=== PATIENT | female | born 1975 | race Caucasian/White ===

== ENCOUNTER 2018-09-20 07:23 | Day surgery (SDC) | payer OTHER ==
[2018-09-20] MEDS ORDERED: LIDOCAINE 1% 2 ML INJ ID PRN (07:45)
[2018-09-20] MEDS ORDERED: LR 1,000 ML IV ONE (07:45)
[2018-09-20] MEDS ORDERED: IOPAMIDOL (ISOVUE-M 300) 15 ML VIAL ONE (07:59)
[2018-09-20] MEDS ORDERED: LIDOCAINE 2% JELLY 20 ML (UROJECT) ONE ×2 (07:59→10:57)
[2018-09-20] MEDS ORDERED: OPIUM/BELLADONNA ALKALO SUPP PR ONE (07:59)
[2018-09-20] MEDS ORDERED: levOFLOXACIN 500 MG/DEXTROSE 100 ML IV ONE (08:03)
[2018-09-20] MEDS ORDERED: MIDAZOLAM 2 MG/2 ML VIAL IVP ONE (08:40)
--- NOTE | 2018-09-20 08:40 | PDANEPAE ---
ANE Past Medical History - Cardiovascular History Hx Hypertension: No Hx Arrhythmias: No Hx Chest Pain: No Hx Coronary Artery / Peripheral Vascular Disease: No Hx CHF / Valvular Disease: No Hx Palpitations: No - Pulmonary History Hx COPD: No Hx Asthma/Reactive Airway Disease: No Hx Recent Upper Respiratory Infection: No Hx Oxygen in Use at Home: No Hx Sleep Apnea: No Sleep Apnea Screening Result - Last Documented: Negative - Neurologic History Hx Cerebrovascular Accident: No Hx Seizures: Yes Hx Dementia: No Neurologic History Comment: CHILDHOOD SEIZURES W/FEVER - Endocrine History Hx Diabetes: No Hypothyroid: No Hyperthyroid: No Obesity: no - Renal History Hx Renal Disorders: Yes Renal History Comment: URETERAL OBSTRUCTION -W/RECENT KIDNEY INFECTION. 08/2018 - Liver History Hx Hepatic Disorders: Yes Hepatic History Comment: CHOLECYSTECTOMY - Neurological & Psychiatric Hx Hx Neurological and Psychiatric Disorders: No - Cancer History Hx Cancer: No - Congenital Disorder History Hx Congenital Disorders: No - GI History Hx Gastrointestinal Disorders: No - Other Health History Other Health History: NEG - Chronic Pain History Chronic Pain: Yes (KIDNEY PAIN) - Surgical History Prior Surgeries: ANKLE SURGERY. TUBAL LIGATION. TENDON REPAIR ANKLE. CHOLECYSTECTOMY. URETEROSCOPY W/STENT. ABDOMINOPLASTY ANE Review of Systems Review of Systems: - Exercise capacity METS (RN): 5 METS ANE Patient History - Allergies Allergies/Adverse Reactions: melatonin Allergy (Verified 09/19/18 17:17) FACE & THROAT SWELLING, REDNESS, DIFFICULTY BREATHING - Home Medications Home Medications: NK [No Known Home Meds] 09/19/18 [Last Taken Unknown] - NPO status NPO Since - Liquids (Date): 09/20/18 NPO Since - Liquids (Time): 00:00 NPO Since - Solids (Date): 09/19/18 NPO Since - Solids (Time): 23:00 - Smoking Hx Smoking Status: Never smoked ANE Labs/Vital Signs - Vital Signs Blood Pressure: 108/65 Heart Rate: 81 Respiratory Rate: 20 O2 Sat (%): 95 Height: 172.72 cm Weight: 83.915 kg ANE Physical Exam - Airway Neck exam: FROM Mallampati Score: Class 1 Mouth exam: normal dental/mouth exam - Pulmonary Pulmonary: no respiratory distress - Cardiovascular Cardiovascular: regular rate and rhythym - ASA Status ASA Status: II
[2018-09-20] MEDS ORDERED: fentaNYL 250 MCG/5 ML INJ ONE (08:53)
[2018-09-20] MEDS ORDERED: DEXAMETHASONE 4 MG/ML VIAL ONE (08:53)
[2018-09-20] MEDS ORDERED: LIDOCAINE 2% 2 ML INJ ONE (08:53)
[2018-09-20] MEDS ORDERED: PROPOFOL 200 MG/20 ML VIAL ONE ×3 (08:53→09:28)
[2018-09-20] MEDS ORDERED: ONDANSETRON 4 MG/2 ML VIAL ONE (08:53)
--- NOTE | 2018-09-20 08:55 | PDHPUP ---
History & Physical Update H&P update statement: This history and physical update is based on an assessment of the patient which was completed after admission or registration (within 24 hours), but prior to the surgery/procedure. H&P update: H&P reviewed & patient examined, no change in patient's condition since H&P completed
[2018-09-20] MEDS ORDERED: PHENYLEPHRINE HCL 100 MCG/ML SYR ONE (10:08)
[2018-09-20] MEDS ORDERED: ePHEDrine SULFATE 25 MG/5 ML SYR ONE (10:08)
[2018-09-20] MEDS ORDERED: KETOROLAC 30 MG/1 ML SDV ONE (10:08)
[2018-09-20] MEDS ORDERED: fentaNYL 100 MCG/2 ML INJ IVP PRN (10:17)
[2018-09-20] MEDS ORDERED: NALOXONE HCL 0.4 MG/ML INJ IVP PRN (10:17)
[2018-09-20] MEDS ORDERED: ONDANSETRON 4 MG/2 ML VIAL IVP PRN (10:17)
--- NOTE | 2018-09-20 10:17 | POSTANESTH ---
Post Anesthetic Evaluation Cardiovascular Status: Normal, Stable Respiratory Status: Normal, Stable Level of Consciousness/Mental Status: Mildly Sleepy, Arousable Pain Control: Adequate, Prn Tx Ordered Nausea/Vomiting Control: Adequate, Prn Tx Ordered Complications Possibly Related to Anesthesia: None Noted
--- NOTE | 2018-09-20 10:28 | POSTOPPROG ---
Post Op Note Date of Operation: 09/20/18 Surgeon: Sarah Sheets Anesthesiologist: Sindi Anesthesia: GET(General Endotracheal) Pre-op Diagnosis: right ureterocele, right hydronephrosis Post-op Diagnosis: same Indication: right ureterocele, right hydronephrosis Procedure: cystoscopy, right transurethral incision of ureterocele, stent Findings: right thick walled ureterocele Inf/Abcess present in the surg proc area at time of surgery?: No Depth: Organ Space Complications: None, patient tolerated well.
[2018-09-20 12:34] VITALS: BP 119/70
--- NOTE | 2018-09-20 13:12 | GOP ---
DATE OF OPERATION: 09/20/2018 SURGEON: Sarah Sehets MD ANESTHESIA: General. ANESTHESIOLOGIST: Ronaldo Delong MD PREOPERATIVE DIAGNOSIS: Right ureterocele, right hydronephrosis, history of urinary tract infection. POSTOPERATIVE DIAGNOSIS: Right ureterocele, right hydronephrosis, history of urinary tract infection. PROCEDURE PERFORMED: Cystoscopy and right transurethral incision of ureterocele and stent placement. FINDINGS: Thick walled ureterocele and a well-placed stent at the end of the procedure. SPECIMENS: None. INDICATIONS: Right obstructing ureterocele. DESCRIPTION OF PROCEDURE: The patient was taken back to the cystoscopy suite, placed on the cystoscopy table in supine position. General anesthesia induced without complication. Time-out performed and core measures satisfied, including placement of a Adi Hugger, SCDs, and administration of Levaquin antibiotic. She was brought to the end of the table, placed in dorsal lithotomy position. All pressure points padded. Genitalia draped and prepped in a standard surgical fashion with Betadine. Initially, I felt I would incise the ureterocele with a cold knife and thus a cold knife DVIU set was assembled. I advanced this with obturator into the urethra and then assembled the working element with a knife. I started to incise with the cold knife, but the ureterocele was extremely thick and the knife was dull, and with this, I decided for safety as well as efficiency I would switch over to the transurethral incision set with the bipolar, but turn the coag completely off and just use cut setting, so I then exchanged this out and put the TUR set together with a hook blade, and then I was easily able to incise the right ureterocele that was very thick walled and exposed the inside of the ureterocele. I incised transversely going from her right to left. I stayed close to the bladder as to prevent future reflux, and the incision was quite wide and long. There was no injury to the ureteral orifice, which was easily identified with the stent coming out. At this point, I felt the incision was complete, and I did use coag to control just 2 small little bleeders on the edge of the tissue. At this point, I removed the resectoscope, placed the cystoscope, and then took the grasper and externalized the distal end of the existing stent, placed a wire through this easily into the right collecting system with fluoroscopic guidance, removed that existing stent that had been internalized by Interventional Radiology, and then placed a 6-Mohawk multivariable stent without difficulty and with fluoroscopic and cystoscopic guidance. There was a very nice curl in the renal pelvis and a nice curl in the bladder. Hemostasis was excellent. Her bladder was then emptied. At this point, the procedure was considered complete. A lidocaine jelly placed per urethra and a belladonna and opium suppository placed per rectum. She was woken from anesthesia uneventfully and transferred to PACU in good condition. She did well during the entire procedure. She will have her stent in for 2 weeks, at which time she will come back to my office for its removal. COMPLICATIONS: None. INDICATION FOR PROCEDURE: The patient presented to [facility] ER with infection, and a right percutaneous nephrostomy tube was placed secondary to finding of a large right ureterocele with obstruction of the right collecting system. She presents today for treatment of that ureterocele. The rationale, risks, and benefits including bleeding, infection, pain, injury to the urethra, the bladder, the ureter, the need for subsequent procedures if this ureterocele incision does not result in opening of the obstruction, possible risk of right-sided ureteral reflux, and need for prolonged stent were discussed with the patient. She agreed to proceed. /[id number]/MODL MTDD
== END 2018-09-20 12:30 | disposition home or self-care (01) ==
LOC: FSGY 07:23
PROVIDERS: ATTEND Urology
PROC: 0T768DZ Dilation of Right Ureter with Intraluminal Device, Via Natural or Artificial Opening Endoscopic (ICD-10-PCS; principal; 2018-09-20 09:00)
DX: N13.1 Hydronephrosis with ureteral stricture, not elsewhere classified (principal); Z87.440 Personal history of urinary (tract) infections
CPT/HCPCS: 52332; 52344; C1769; C2625; J1100; J1885; J1956; J2250; J2370; J2405; J2704; J3010; Q9967